=== PATIENT | male | born 1955 | race Caucasian/White ===

== ENCOUNTER → 2024-06-24 | Outpatient (CLI) | payer OTHER, SELFPAY ==
[2024-06-24 08:54] LABS: Collection Type, Urine Clean Catch; Squamous Epithelial Cell,Urine 0 /hpf (0-5)
[2024-06-24 09:34] LABS: Prostate Specific Antigen 2.26 ng/mL (0-4.00)
[2024-06-24 09:40] LABS: Alanine Aminotransferase 15 U/L (10-49); Albumin, Serum 4.7 gm/dL (3.4-4.8); Albumin/Globulin Ratio 1.6 (1.2-2.2); Alkaline Phosphatase 83 U/L (46-116); Anion Gap 11 (7-16); Aspartate Amino Transferase 30 U/L (0-34); BUN/Creatinine Ratio 15 Ratio (12-20); Bilirubin,Total 1.1 mg/dL (0.3-1.2); Blood Urea Nitrogen 18 mg/dL (9-23); Calcium 9.1 mg/dL (8.3-10.6); Calcium (Corrected) 9.1 mg/dL (8.5-10.1); Carbon Dioxide 32.7 mMol/L (20.0-31.0); Cardiac Risk Estimate 5.3 RATIO (4.0-6.7); Chloride 98 mMol/L (98-107); Cholesterol 168 mg/dL (132-200); Creatinine (Component) 1.2 mg/dL (0.6-1.3); Glucose 194 mg/dL (74-106); HDL Cholesterol 32 mg/dL (40-60); LDL Cholesterol,Calculated 62 mg/dL (0-130); Osmolality,Calculated 290 (275-295); Potassium 3.3 mMol/L (3.4-5.1); Sodium 142 mMol/L (136-145); Thyroid Stimulating Hormone 3.51 uIU/mL (0.55-4.78); Total Protein 7.7 gm/dL (5.7-8.2); Triglycerides 369 mg/dL (30-150); eGFR > 60 See Note
[2024-06-24 09:53] LABS: Glucose Estimated Average 143 mg/dL (80-131); Hemoglobin A1C 6.6 % Hgb (4.8-6.0)
[2024-06-24 09:54] LABS: Basophils # (Auto) 0.1 Thou/mm3 (0.0-0.2); Basophils % (Auto) 1 % (0-2.5); Eosinophils # (Auto) 0.3 Thou/mm3 (0.0-0.5); Eosinophils % (Auto) 4 % (0-10); Hematocrit 39.4 % (41.0-53.0); Hemoglobin 14.4 g/dL (13.5-16.0); Immature Granulocytes % (Auto) 0 % (0-0); Immature Granulocytes Auto 0.01 Thou/mm3 (0.00-0.00); Lymphocytes # (Auto) 0.8 Thou/mm3 (1.0-4.8); Lymphocytes % (Auto) 12 % (10-50); Mean Corpuscular HGB Conc 36.5 g/dl (31.0-37.0); Mean Corpuscular Hemoglobin 29.1 pg (25.0-35.0); Mean Corpuscular Volume 80 fL (80-100); Monocytes # (Auto) 0.6 Thou/mm3 (0.0-0.8); Monocytes % (Auto) 9 % (0-12); Neutrophils # (Auto) 5.2 Thou/mm3 (1.8-7.7); Neutrophils % (Auto) 75 % (37-80); Nucleated Red Blood Cell % 0 /100 WBC (0); Platelet Count 263 Thou/mm3 (140-440); RDW Standard Deviation 37.5 fL (35.1-43.9); Red Blood Count 4.94 Miln/mm3 (4.50-5.90)
[2024-06-24 11:21] LABS: Amorphous Crystals,Urine Present (Absent); Bilirubin,Urine Negative (Negative); Blood,Urine Negative (Negative); Clarity,Urine Clear (Clear/Hazy); Color,Urine Lt-Yellow (Lt Yel-Yel); Glucose, Urine Negative (Negative); Ketones,Urine Negative (Negative); Leukocyte Esterase,Urine Negative (Negative); Nitrite,Urine Negative (Negative); PH,Urine 6.5 (5.0-7.0); Protein,Urine Trace (Neg - Trace); RBC,Urine 2 /hpf (0-3); Specific Gravity,Urine 1.018 (1.001-1.035); Urobilinogen,Urine Negative mg/dL (0.0-1.0); WBC,Urine 2 /hpf (0-5)
--- NOTE | 2024-06-24 13:26 | XR_ITS ---
Examination:Right hip AP, lateral, AP pelvis 3 views Technique: Hip AP lateral, AP pelvis, 3 views Exam date and time:June 24, 2024 1342 hours INDICATIONS: Right hip pain beginning 3 weeks ago FINDINGS: No right hip fracture or dislocation Moderate bilateral hip osteoarthritis Left hip bones of the pelvis intact IMPRESSION: Moderate bilateral hip osteoarthritis.
--- NOTE | 2024-06-24 13:26 | XR_ITS ---
Examination: Lumbar spine, 5 views Technique: Lumbar spine AP, lateral, coned lateral lower lumbar spine, bilateral obliques 5 views Exam date and time: June 24, 2024 1342 hours INDICATIONS: Low back pain radiating down the right hip beginning 3 weeks ago FINDINGS: Adequate alignment lumbar vertebral bodies on the lateral view Diffuse [id number] lumbar disc narrowing most prominent at L5-S1 No spondylolisthesis Diffuse advanced facet arthropathy IMPRESSION: Mild to moderate diffuse lumbar degenerative disc disease, most prominent at L5-S1 with significant spinal stenosis Moderate bilateral hip osteoarthritis
== END | disposition home or self-care (01) ==
PROVIDERS: PCP Family Medicine; Referring Provider Family Medicine; Visit Provider Radiology Diagnostic Radiology
DX: M16.0 Bilateral primary osteoarthritis of hip (principal); M51.379 Other intervertebral disc degeneration, lumbosacral region without mention of lumbar back pain or lower extremity pain; M48.07 Spinal stenosis, lumbosacral region; Z00.00 Encounter for general adult medical examination without abnormal findings; E78.2 Mixed hyperlipidemia; I10 Essential (primary) hypertension; E03.9 Hypothyroidism, unspecified; N40.0 Benign prostatic hyperplasia without lower urinary tract symptoms; E87.6 Hypokalemia; R73.01 Impaired fasting glucose
CPT/HCPCS: 36415; 72110; 73502; 80053; 80061; 81001; 83036; 84153; 84443; 85025

== ENCOUNTER 2024-08-05 09:48 | Emergency (ER) | payer OTHER, SELFPAY ==
[2024-08-05 10:06] VITALS: BP 172/87; PULSE 70; RESP 17; TEMP 37.2; O2SAT 99; BMI 31.3
--- NOTE | 2024-08-05 10:08 | XR_ITS ---
Examination: CT abdomen with intravenous contrast CT pelvis with intravenous contrast 2-D coronal reconstructions 2-D sagittal reconstructions Date and time of exam:August 05, 2024 1151 hours INDICATIONS: Abdominal pain supraumbilical today. CTDI: vol (mGy) 12.9 DLP: (mGycm) 809 Technique: Multiple axial sections of the abdomen and pelvis have been obtained. 64 slice high-resolution scanner used. 3 mm axial sections have been obtained, post intravenous injection 60 cc [id number] 2-D sagittal, coronal reconstructions obtained. Low dose protocols were performed. One or more of the following dose reduction techniques were used; automated exposure control, adjustment of the mA and/or KV according to patient size, use of iterative reconstruction technique. Findings: No focal liver or splenic lesions No gallstones No pancreatic or adrenal mass No renal or ureteral calculi, no hydronephrosis Aorta normal size Marked inflammation around the colon diffusely, lymph nodes in the right pericecal region Also wall thickening terminal ileal segments The appendix is not enlarged 8mm fat-containing umbilical hernia Mediolateral prostate dimension 4.8 cm Mild thickening urinary bladder wall up to 4 mm Prominent osteopenia IMPRESSION: Severe colitis distal ileitis pattern, differential would include Crohn's disease, ulcerative colitis
--- NOTE | 2024-08-05 10:09 | PD.EDRME ---
Rapid Medical Screening Exam RME Arrival date/time: 08/05/24 09:48 68-year-old male presents to the emergency department today for complaints of abdominal pain abdominal distention x 1 month Chief Complaint: Abdominal Pain Vital signs: Vital Signs Temperature 98.9 F 08/05/24 10:06 Pulse Rate 70 08/05/24 10:06 Respiratory Rate 17 08/05/24 10:06 Blood Pressure 172/87 H 08/05/24 10:06 Pulse Oximetry (%) 99 08/05/24 10:06 Oxygen Delivery Method Room Air 08/05/24 10:06
[2024-08-05 10:56] LABS: Basophils # (Auto) 0.1 Thou/mm3 (0.0-0.2); Basophils % (Auto) 1 % (0-2.5); Eosinophils # (Auto) 0.3 Thou/mm3 (0.0-0.5); Eosinophils % (Auto) 2 % (0-10); Hematocrit 39.8 % (41.0-53.0); Immature Granulocytes % (Auto) 0 % (0-0); Immature Granulocytes Auto 0.05 Thou/mm3 (0.00-0.00); Lymphocytes # (Auto) 0.8 Thou/mm3 (1.0-4.8); Lymphocytes % (Auto) 7 % (10-50); Mean Corpuscular HGB Conc 35.2 g/dl (31.0-37.0); Mean Corpuscular Hemoglobin 29.1 pg (25.0-35.0); Mean Corpuscular Volume 83 fL (80-100); Monocytes # (Auto) 0.8 Thou/mm3 (0.0-0.8); Monocytes % (Auto) 7 % (0-12); Neutrophils # (Auto) 10.1 Thou/mm3 (1.8-7.7); Neutrophils % (Auto) 84 % (37-80); Nucleated Red Blood Cell % 0 /100 WBC (0); Platelet Count 258 Thou/mm3 (140-440); RDW Standard Deviation 38.6 fL (35.1-43.9); Red Blood Count 4.81 Miln/mm3 (4.50-5.90); White Blood Count 12.1 Thou/mm3 (3.8-10.6)
[2024-08-05 11:17] LABS: Alanine Aminotransferase 13 U/L (10-49); Albumin, Serum 4.6 gm/dL (3.4-4.8); Albumin/Globulin Ratio 1.7 (1.2-2.2); Alkaline Phosphatase 77 U/L (46-116); Anion Gap 9 (7-16); Aspartate Amino Transferase 28 U/L (0-34); BUN/Creatinine Ratio 15 Ratio (12-20); Bilirubin,Total 0.7 mg/dL (0.3-1.2); Blood Urea Nitrogen 16 mg/dL (9-23); Calcium 9.3 mg/dL (8.3-10.6); Calcium (Corrected) 9.3 mg/dL (8.5-10.1); Carbon Dioxide 32.8 mMol/L (20.0-31.0); Chloride 100 mMol/L (98-107); Creatinine (Component) 1.1 mg/dL (0.6-1.3); Estimated Creatinine Clearance 83.9 mL/min (>60); Globulin 2.7 gm/dL (2.3-3.5); Glucose 203 mg/dL (74-106); Lipase 45 U/L (12-53); Osmolality,Calculated 290 (275-295); Potassium 3.8 mMol/L (3.4-5.1); Sodium 142 mMol/L (136-145); Total Protein 7.3 gm/dL (5.7-8.2); eGFR > 60 See Note
--- NOTE | 2024-08-05 11:22 | PC.NURSE ---
PT IN TODAY FOR ABD PAIN THAT STARTED ABOUT A MONTH AGO. PT STATES THAT HE DOES HAVE A HERNIA THAT HE'S BEEN FOLLOWING UP WITH HIS PMD ABOUT. PT IS A/OX4 AND IS AT THE BEDSIDE.
--- NOTE | 2024-08-05 11:28 | PD.EDABDPN ---
ED Abdominal Pain RME/HPI General Chief Complaint: Abdominal Pain Stated complaint: ABD PAIN X 1 MO; HERNIA STICKING OUT; TODAY WORST Time seen by provider: 08/05/24 11:23 Arrival date/time: 08/05/24 09:48 Source: patient and family Limitations: no limitations RME / HPI RME / HPI narrative: 08/05/24 09:48 68-year-old male presents to the emergency department today for complaints of abdominal pain abdominal distention x 1 month 11:29 68-year-old male with a history of hypertension and hypothyroidism has a known ventral hernia that is chronic for several years. He states is had some increased discomfort for the past month but more bothersome in the past week. He has no vomiting or diarrhea. Has no changes in urination. Denies any problems of urination. Denies any history of prior intra-abdominal or pelvic surgeries. He has no other acute complaints. Related Data Previous Rx's ?Medication ?Instructions ?Recorded levofloxacin 750 mg tablet 750 mg PO Q24H 5 days #5 tabs 08/05/24 Allergies Allergy/AdvReac Type Severity Reaction Status Date / Time lisinopril Allergy Severe Vomiting Verified 08/05/24 09:54 Penicillins Allergy Severe Hives Verified 08/05/24 09:54 clindamycin Allergy Intermediate Hives Verified 08/05/24 09:54 Review of Systems Review of Systems Systems Reviewed: All systems reviewed, normal except as documented ED Exam General Limitations: Present no limitations General appearance: Present alert and in no apparent distress Head Head exam: Present atraumatic Eye Eye exam: Present normal appearance, PERRL and EOMI ENT ENT exam: Present normal exam, normal oropharynx and mucous membranes moist Neck Neck exam: Present normal inspection, full ROM and trachea midline Chest Chest inspection: Present normal inspection and symmetric chest wall rise Respiratory Respiratory exam: Present normal lung sounds bilaterally Cardiovascular Cardiovascular exam: Present regular rate, normal rhythm and normal heart sounds Abdominal Exam Abdominal exam: Present soft and normal bowel sounds Extremities Exam Extremities exam: Present normal inspection and full ROM Back Exam Back exam: Present normal inspection and full ROM Neurological Exam Neurological exam: Present alert, oriented X3 and CN II-XII intact Psychiatric Psychiatric exam: Present normal affect and normal mood Skin Skin exam: Present warm, dry, intact and normal color Course Quality Measures none Orders Category Date Time Status CT Screening NOW Care 08/05/24 10:09 Active Insert IV NOW Care 08/05/24 10:[address] abdomen pelvis w con Stat Exams 08/05/24 10:08 Completed CBC Stat Lab 08/05/24 10:31 Completed Comprehensive Metabolic Panel Stat Lab 08/05/24 10:31 Completed Lactic Acid [Lactate (Lactic Acid)] Stat Lab 08/05/24 11:45 Completed Lipase Stat Lab 08/05/24 10:31 Completed UA, C/S IF [Urinalysis, C/S if Indicated] Stat Lab 08/05/24 12:57 Received Levofloxacin [Levaquin] Med 08/05/24 13:05 Once 750 mg PO X1 ONE Vital Signs Vital signs: Vital Signs Temperature 98.9 F 08/05/24 10:06 Pulse Rate 70 08/05/24 10:06 Respiratory Rate 17 08/05/24 10:06 Blood Pressure 172/87 H 08/05/24 10:06 Pulse Oximetry (%) 99 08/05/24 10:06 Oxygen Delivery Method Room Air 08/05/24 10:06 Abdominal Pain MDM MDM Narrative MDM Narrative:: 68-year-old male with a history of hypertension and hypothyroidism has a known ventral hernia that is chronic for several years. He states is had some increased discomfort for the past month but more bothersome in the past week. He has no vomiting or diarrhea. Has no changes in urination. Denies any problems of urination. Denies any history of prior intra-abdominal or pelvic surgeries. He has no other acute complaints. On exam patient is nontoxic-appearing and no visible signs distress. No abdominal masses were appreciated on exam. CT reveals a nonincarcerated fat-containing hernia as well as a colitis pattern. Patient given a dose of Levaquin here. We discussed his CT findings and need to follow-up as an outpatient. I do believe the patient be discharged from the emergency room for outpatient follow-up. He will be referred to general surgery for consultation. We will refer him to GI for outpatient consultation. Return precautions were discussed. Discussed how to reduce hernia at home. He will return here as needed for any worsening changes as needed. Patient data External records reviewed:: None Clinical information provided by:: patient and family Social determinants that could affect healthcare access:: none Patient has the following chronic illnesses:: n/a How is presenting disease/condition affected by chronic disease/condition?: no chronic disease Evaluation data The following diagnostics were reviewed and interpreted by me:: lab results and radiology exam(s) (Nonincarcerated fat-containing hernia with colitis pattern.) Lab and/or radiology exams considered but not ordered:: n/a Interpretation Summary: No leukocytosis or metabolic derangement. Lactic acid is unremarkable. Medications / Prescriptions Medications or Prescriptions considered but not ordered:: n/a Medication administrations:: n/a Consultations Consultation(s) initiated? (list below): No Diagnosis Differential diagnosis abdominal pain: abdominal pain, calculus of kidney, constipation, diverticulitis, gastroenteritis, small bowel obstruction and other Most likely diagnosis given after review of the tests above:: Abdominal pain Admission Indicated Admission indicated?: not indicated Admission Request Was there a request for admission?: No Disposition Plan Disposition Plan: Discharge Discharge Attestation Discharge Attestation: The patient and all family members were given an opportunity to ask questions and understood the discharge instructions. Discharge instructions specifically effects, indications for sooner follow up or return to the emergency department, and the expected course of current diagnosis. Patient condition: Stable Discharge Plan Plan Patient Disposition: HOME (Self Care) Patient condition on transfer: Stable Prescriptions/Referrals Prescriptions/Med Rec: New levofloxacin 750 mg tablet 750 mg PO Q24H 5 Days Qty: 5 0RF Referrals: Levi Carrion MD [Primary Care Provider] - In 1 week Elias Mallory MD [Physician] - In 1 week Jessica Alvarado MD [Physician] - In 1 week Problem List Clinical Impression: Hernia, Colitis Patient/Caregiver Discharge Instructions Education Materials: Understanding Colitis, ED Hernia (Adult) Additional Instructions: Use the provided medication as prescribed. Contact surgery and GI to schedule follow-up appointments for consultation. Please return to the emergency room anytime for any worsening or emergent changes. Print Language: Croatian Stand Alone Forms: [employer] Award Info., Patient Portal Info Letter
[2024-08-05 13:03] LABS: Collection Type, Urine Clean Catch; Squamous Epithelial Cell,Urine 0 /hpf (0-5)
[2024-08-05 13:07] LABS: Bilirubin,Urine Negative (Negative); Blood,Urine Negative (Negative); Clarity,Urine Clear (Clear/Hazy); Color,Urine Lt-Yellow (Lt Yel-Yel); Culture Indicated,Urine Not Indicated; Glucose, Urine Negative (Negative); Ketones,Urine Negative (Negative); Leukocyte Esterase,Urine Negative (Negative); Nitrite,Urine Negative (Negative); Protein,Urine Trace (Neg - Trace); RBC,Urine 2 /hpf (0-3); Specific Gravity,Urine 1.025 (1.001-1.035); Urobilinogen,Urine Negative mg/dL (0.0-1.0); WBC,Urine 2 /hpf (0-5)
[2024-08-05] MEDS: LEVOFLOXACIN 250 MG TABLET 750 MG PO (13:23)
[2024-08-05 13:50] VITALS: BP 150/76; PULSE 65; O2SAT 98
== END 2024-08-05 13:51 | disposition home or self-care (01) ==
PROVIDERS: Nurse Practitioner Primary Care; Physician Assistant Medical; Emergency Provider Family Medicine; PCP Family Medicine
DX: K52.9 Noninfective gastroenteritis and colitis, unspecified (principal); K42.9 Umbilical hernia without obstruction or gangrene
CPT/HCPCS: 36415; 74177; 80053; 81001; 83605; 83690; 85025; 99285; A4649; Q9967; A9270

== ENCOUNTER → 2024-09-03 | Outpatient (CLI) | payer OTHER, SELFPAY ==
[2024-09-03 10:17] LABS: Glucose Estimated Average 160 mg/dL (80-131); Hemoglobin A1C 7.2 % Hgb (4.8-6.0)
[2024-09-03 10:40] LABS: Alanine Aminotransferase 16 U/L (10-49); Albumin, Serum 4.6 gm/dL (3.4-4.8); Albumin/Globulin Ratio 1.6 (1.2-2.2); Alkaline Phosphatase 84 U/L (46-116); Anion Gap 13 (7-16); Aspartate Amino Transferase 33 U/L (0-34); BUN/Creatinine Ratio 12 Ratio (12-20); Bilirubin,Total 0.7 mg/dL (0.3-1.2); Blood Urea Nitrogen 12 mg/dL (9-23); Calcium 9.3 mg/dL (8.3-10.6); Calcium (Corrected) 9.3 mg/dL (8.5-10.1); Carbon Dioxide 31.7 mMol/L (20.0-31.0); Cardiac Risk Estimate 5.6 RATIO (4.0-6.7); Chloride 98 mMol/L (98-107); Cholesterol 168 mg/dL (132-200); Creatinine (Component) 1.0 mg/dL (0.6-1.3); Globulin 2.9 gm/dL (2.3-3.5); Glucose 184 mg/dL (74-106); HDL Cholesterol 30 mg/dL (40-60); Osmolality,Calculated 289 (275-295); Sodium 143 mMol/L (136-145); Thyroid Stimulating Hormone 2.48 uIU/mL (0.55-4.78); Total Protein 7.5 gm/dL (5.7-8.2); Triglycerides 431 mg/dL (30-150); eGFR > 60 See Note
[2024-09-03 10:41] LABS: Potassium 2.6 mMol/L (3.4-5.1)
== END | disposition home or self-care (01) ==
LOC: COPL 08:22
PROVIDERS: PCP Family Medicine; Referring Provider Family Medicine; Visit Provider Family Medicine
DX: E11.9 Type 2 diabetes mellitus without complications (principal); E78.2 Mixed hyperlipidemia; I10 Essential (primary) hypertension; E03.9 Hypothyroidism, unspecified
CPT/HCPCS: 36415; 80053; 80061; 83036; 84443

== ENCOUNTER → 2024-09-23 | Outpatient (CLI) | payer OTHER, SELFPAY ==
[2024-09-23 13:38] LABS: Potassium 3.0 mMol/L (3.4-5.1)
== END | disposition home or self-care (01) ==
LOC: COPL 12:34
PROVIDERS: PCP Family Medicine; Referring Provider Family Medicine; Visit Provider Family Medicine
DX: E87.6 Hypokalemia (principal)
CPT/HCPCS: 36415; 84132

== ENCOUNTER 2024-11-05 08:36 | Emergency (ER) | payer OTHER, SELFPAY ==
[2024-11-05 08:50] VITALS: BP 177/89; PULSE 77; RESP 18; TEMP 36.5; O2SAT 97; BMI 30.3
--- NOTE | 2024-11-05 08:51 | XR_ITS ---
Examination: CT abdomen and pelvis without contrast. Coronal 3-D reconstructions. Sagittal 2-D reconstructions. Date and time of exam:November 05, 2024 1147 hours COMPARISON: August 05, 2024 INDICATIONS: Left-sided flank pain with nausea beginning 6 days ago CTDI: vol (mGy): 10.5 DLP: (mGycm): 713 Technique: Axial images of the abdomen have been obtained, 3 mm slice thickness Intravenous contrast material has not been administered. Low dose protocols were performed. One or more of the following dose reduction techniques were used; automated exposure control, adjustment of the mA and/or KV according to patient size, use of iterative reconstruction technique. Findings: No focal liver or splenic lesions No gallstones No pancreatic or adrenal mass. Mild to moderate renal scar formation 21 mm left renal cyst No renal or ureteral calculi, no hydronephrosis No abdominal aortic aneurysmal dilatation There is wall thickening and mild inflammatory change involving terminal ileal segment Normal appendix No bowel obstruction Urinary bladder intact Transverse prostate dimension 4.5 cm Prominent osteopenia IMPRESSION: No renal or ureteral calculi, no hydronephrosis Wall thickening and inflammatory change involving the terminal ileal segments suspicious for enteritis such as Crohn's disease Normal appendix
--- NOTE | 2024-11-05 08:51 | PD.EDABDPN ---
ED Abdominal Pain RME/HPI General Chief Complaint: General Adult/Misc Complain Stated complaint: L) KIDNEY PAIN X 6 DAYS Time seen by provider: 11/05/24 08:48 Arrival date/time: 11/05/24 08:36 69-year-old male with no known medical history presents to the emergency room with a chief complaint of left-sided flank pain x 6 days Source: patient Mode of arrival: ambulatory Limitations: no limitations Related Data Allergies Allergy/AdvReac Type Severity Reaction Status Date / Time lisinopril Allergy Severe Vomiting Verified 11/05/24 08:40 Penicillins Allergy Severe Hives Verified 11/05/24 08:40 clindamycin Allergy Intermediate Hives Verified 11/05/24 08:40 Review of Systems Review of Systems Systems Reviewed: All systems reviewed, normal except as documented Constitutional Constitutional: Reports system reviewed and no additional complaints, except as documented, Denies fatigue, Denies fever(s), Denies headache(s) and Denies weakness Eyes Eyes: Reports system reviewed and no additional complaints, except as documented, Denies blurry vision and Denies change in vision ENT Ears, Nose, Mouth, and Throat: Reports system reviewed and no additional complaints, except as documented, Denies otalgia, Denies headache(s), Denies nasal congestion, Denies throat swelling and Denies vertigo Cardiovascular Cardiovascular: Reports system reviewed and no additional complaints, except as documented, Denies chest pain, Denies dyspnea and Denies dyspnea on exertion Respiratory Respiratory: Reports system reviewed and no additional complaints, except as documented, Denies chest congestion, Denies cough, Denies dyspnea, Denies dyspnea on exertion and Denies wheezing Gastrointestinal Gastrointestinal: Reports system reviewed and no additional complaints, except as documented, Denies abdominal pain, Denies cramping, Denies nausea and Denies vomiting Genitourinary Genitourinary: Reports system reviewed and no additional complaints, except as documented, Denies dysuria and Denies hematuria Musculoskeletal Musculoskeletal: Reports system reviewed and no additional complaints, except as documented and Reports back pain Integumentary/Breasts Skin/Breast: Reports system reviewed and no additional complaints, except as documented and Denies wounds Neurologic Neurologic: Reports system reviewed and no additional complaints, except as documented, Denies confusion, Denies headache(s), Denies lack of coordination, Denies vertigo and Denies weakness Psychiatric Psychiatric: Reports system reviewed and no additional complaints, except as documented, Denies anxiety, Denies confusion, Denies depression, Denies paranoia, Denies suicidal ideation and Denies tactile hallucinations Endocrine Endocrine: Reports system reviewed and no additional complaints, except as documented and Denies fatigue Hematologic/Lymphatic Hematologic/Lymphatic: Reports system reviewed and no additional complaints, except as documented and Denies lymphadenopathy Allergic/Immunologic Allergic/Immunologic: Reports system reviewed and no additional complaints, except as documented, Denies throat swelling, Denies urticaria and Denies wheezing Past Medical History Past Medical History CARDIAC: Positive Hypertension; Negative Cardiac Disorders or Congestive Heart Failure RESPIRATORY: Negative Chronic Obstructive Pulmonary Disease (COPD) or Asthma GASTROINTESTINAL: Positive Hiatal Hernia GENITOURINARY: Negative Renal Disease ENDOCRINE: Positive Diabetes Mellitus Type 2; Negative Diabetes Mellitus Type 1 HEMATOLOGIC: Negative Sickle Cell Disease Surgical History SURGICAL: Positive Nose Surgery Social History SMOKING STATUS: Former smoker ED Exam General Limitations: Present no limitations General appearance: Present alert and in no apparent distress Head Head exam: Present atraumatic Eye Eye exam: Present normal appearance, PERRL and EOMI ENT ENT exam: Present normal exam, normal oropharynx and mucous membranes moist Neck Neck exam: Present normal inspection, full ROM and trachea midline Chest Chest inspection: Present normal inspection and symmetric chest wall rise Respiratory Respiratory exam: Present normal lung sounds bilaterally Cardiovascular Cardiovascular exam: Present regular rate, normal rhythm and normal heart sounds Abdominal Exam Abdominal exam: Present soft and normal bowel sounds Extremities Exam Extremities exam: Present normal inspection and full ROM Back Exam Back exam: Present normal inspection, full ROM and CVA tenderness (L) Neurological Exam Neurological exam: Present alert, oriented X3 and CN II-XII intact Psychiatric Psychiatric exam: Present normal affect and normal mood Skin Skin exam: Present warm, dry, intact and normal color Course Quality Measures none Orders Category Date Time Status CT abdomen pelvis wo con Stat Exams 11/05/24 08:51 Completed CBC Stat Lab 11/05/24 09:21 Completed CMP [Comprehensive Metabolic Panel] Stat Lab 11/05/24 09:21 Completed UA [Urinalysis] Stat Lab 11/05/24 10:00 Completed Urine Culture Stat Lab 11/05/24 10:00 Received Ketorolac Inj [Toradol Inj] Med 11/05/24 08:51 Discontinued 30 mg IM X1 ONE Vital Signs Vital signs: Vital Signs Temperature 97.7 F 11/05/24 08:50 Pulse Rate 77 11/05/24 08:50 Respiratory Rate 18 11/05/24 08:50 Blood Pressure 177/89 H 11/05/24 08:50 Pulse Oximetry (%) 97 11/05/24 08:50 Oxygen Delivery Method Room Air 11/05/24 08:50 Abdominal Pain MDM MDM Narrative MDM Narrative:: 69-year-old male with no known medical history presents to the emergency room with a chief complaint of left-sided flank pain x 6 days Patient is hemodynamically stable and in no apparent distress Physical examination shows left CVA tenderness with palpation. Patient is afebrile not tachycardic not tachypneic CBC CMP were negative for any leukocytosis. There is no acute kidney injury. Urinalysis is within normal limits. CT of the abdomen and pelvis was negative for any acute findings. There is 0 ureteral calculi or any hydronephrosis or pyelonephritis. There is a 21 mm cyst in the left kidney. Patient was educated to follow-up with your primary care provider Patient was discharged and educated to follow-up with primary care provider in the next 24 to 48 hours and return to the emergency room for any evidence of worsening signs or symptoms Patient data External records reviewed:: [facility] previous records Clinical information provided by:: patient Social determinants that could affect healthcare access:: none Patient has the following chronic illnesses:: No chronic illness How is presenting disease/condition affected by chronic disease/condition?: no chronic disease Evaluation data The following diagnostics were reviewed and interpreted by me:: lab results and radiology exam(s) Lab and/or radiology exams considered but not ordered:: Labs and radiology exams considered and ordered Interpretation Summary: CT abdomen and pelvis-Findings: No focal liver or splenic lesions No gallstones No pancreatic or adrenal mass. Mild to moderate renal scar formation 21 mm left renal cyst No renal or ureteral calculi, no hydronephrosis No abdominal aortic aneurysmal dilatation There is wall thickening and mild inflammatory change involving terminal ileal segment Normal appendix No bowel obstruction Urinary bladder intact Transverse prostate dimension 4.5 cm Prominent osteopenia IMPRESSION: No renal or ureteral calculi, no hydronephrosis Wall thickening and inflammatory change involving the terminal ileal segments suspicious for enteritis such as Crohn's disease Normal appendix Medications / Prescriptions Medications or Prescriptions considered but not ordered:: Medication Medication administrations:: Medication Administration History Discontinued Medications Ketorolac Tromethamine (Ketorolac Inj 60 Mg/2 Ml Vial) 30 mg IM X1 ONE Stop: 11/05/24 08:52 Last Admin: 11/05/24 09:01 Dose: 30 mg Documented By: DB Medication given Consultations Consultation(s) initiated? (list below): No Diagnosis Differential diagnosis abdominal pain: calculus of kidney, constipation, gastroenteritis and other (Renal cyst) Most likely diagnosis given after review of the tests above:: Renal cyst Admission Indicated Admission indicated?: not indicated Admission Request Was there a request for admission?: No Disposition Plan Disposition Plan: Discharge Discharge Attestation Discharge Attestation: The patient and all family members were given an opportunity to ask questions and understood the discharge instructions. Discharge instructions specifically effects, indications for sooner follow up or return to the emergency department, and the expected course of current diagnosis. Patient condition: Stable Discharge Plan Plan Patient Disposition: HOME (Self Care) Discharge Disposition comment: Stable Prescriptions/Referrals Referrals: Levi Carrion MD [Primary Care Provider, [facility]] - In 1 week Problem List Clinical Impression: Acute left flank pain, Renal cyst Patient/Caregiver Discharge Instructions Education Materials: Simple Kidney Cysts, ED Flank Pain, Uncertain Cause Additional Instructions: Please follow-up with your primary care provider in the next [address] of your abdomen and pelvis was negative for any acute kidney stones. Your urinalysis was negative for any urinary tract infection. Blood work was within normal limits. Your CT of your abdomen and pelvis did find a 21 mm left-sided renal cyst. Please follow-up with your primary care provider for further management as this can be the cause of your left-sided flank pain For any evidence of worsening signs or symptoms return to the emergency room immediately Print Language: Surinamese Stand Alone Forms: [employer] Award Info., Patient Portal Info Letter PA/PRODUCTION CONTROL ANALYST Supervising Physician LORI/TELLY Supervising Physician: Dr. Lin
[2024-11-05] MEDS: KETOROLAC INJ 60 MG/2 ML VIAL 30 MG IM (09:01)
[2024-11-05 09:35] LABS: Basophils # (Auto) 0.1 Thou/mm3 (0.0-0.2); Basophils % (Auto) 1 % (0-2.5); Eosinophils # (Auto) 0.3 Thou/mm3 (0.0-0.5); Eosinophils % (Auto) 2 % (0-10); Hematocrit 40.1 % (41.0-53.0); Hemoglobin 14.3 g/dL (13.5-16.0); Immature Granulocytes Auto 0.04 Thou/mm3 (0.00-0.00); Lymphocytes # (Auto) 1.1 Thou/mm3 (1.0-4.8); Lymphocytes % (Auto) 10 % (10-50); Mean Corpuscular HGB Conc 35.7 g/dl (31.0-37.0); Mean Corpuscular Hemoglobin 29.2 pg (25.0-35.0); Mean Corpuscular Volume 82 fL (80-100); Monocytes # (Auto) 0.9 Thou/mm3 (0.0-0.8); Monocytes % (Auto) 8 % (0-12); Neutrophils # (Auto) 8.6 Thou/mm3 (1.8-7.7); Neutrophils % (Auto) 79 % (37-80); Nucleated Red Blood Cell # 0.00 Thou/mm3 (0.00-0.00); Nucleated Red Blood Cell % 0 /100 WBC (0); Platelet Count 273 Thou/mm3 (140-440); RDW Standard Deviation 38.5 fL (35.1-43.9); Red Blood Count 4.89 Miln/mm3 (4.50-5.90); White Blood Count 10.9 Thou/mm3 (3.8-10.6)
[2024-11-05 09:52] LABS: Alanine Aminotransferase 23 U/L (10-49); Albumin, Serum 4.8 gm/dL (3.4-4.8); Albumin/Globulin Ratio 1.8 (1.2-2.2); Alkaline Phosphatase 90 U/L (46-116); Anion Gap 10 (7-16); Aspartate Amino Transferase 36 U/L (0-34); BUN/Creatinine Ratio 12 Ratio (12-20); Bilirubin,Total 0.8 mg/dL (0.3-1.2); Blood Urea Nitrogen 17 mg/dL (9-23); Calcium 9.8 mg/dL (8.3-10.6); Calcium (Corrected) 9.8 mg/dL (8.5-10.1); Carbon Dioxide 33.6 mMol/L (20.0-31.0); Chloride 95 mMol/L (98-107); Creatinine (Component) 1.4 mg/dL (0.6-1.3); Estimated Creatinine Clearance 64.1 mL/min (>60); Globulin 2.7 gm/dL (2.3-3.5); Glucose 297 mg/dL (74-106); Osmolality,Calculated 290 (275-295); Potassium 2.9 mMol/L (3.4-5.1); Sodium 139 mMol/L (136-145); Total Protein 7.5 gm/dL (5.7-8.2); eGFR 55 See Note
[2024-11-05 10:08] LABS: Collection Type, Urine Clean Catch; Squamous Epithelial Cell,Urine 0 /hpf (0-5)
[2024-11-05 10:15] LABS: Bilirubin,Urine Negative (Negative); Blood,Urine Negative (Negative); Clarity,Urine Clear (Clear/Hazy); Color,Urine Yellow (Lt Yel-Yel); Glucose, Urine 3+ (Negative); Ketones,Urine Negative (Negative); Leukocyte Esterase,Urine Negative (Negative); Nitrite,Urine Negative (Negative); PH,Urine 6.5 (5.0-7.0); Protein,Urine 2+ (Neg - Trace); RBC,Urine 4 /hpf (0-3); Specific Gravity,Urine 1.021 (1.001-1.035); Urobilinogen,Urine Negative mg/dL (0.0-1.0); WBC,Urine 2 /hpf (0-5)
== END 2024-11-05 13:31 | disposition home or self-care (01) ==
PROVIDERS: Nurse Practitioner Family; Emergency Provider Emergency Medicine; PCP Family Medicine
DX: N28.1 Cyst of kidney, acquired (principal)
CPT/HCPCS: 36415; 74176; 80053; 81001; 85025; 87086; 96372; 99284; J1885

== ENCOUNTER → 2024-11-26 | Outpatient (CLI) | payer OTHER, SELFPAY ==
[2024-11-26 08:36] LABS: Basophils # (Auto) 0.1 Thou/mm3 (0.0-0.2); Basophils % (Auto) 1 % (0-2.5); Eosinophils # (Auto) 0.3 Thou/mm3 (0.0-0.5); Eosinophils % (Auto) 4 % (0-10); Hematocrit 39.5 % (41.0-53.0); Hemoglobin 14.1 g/dL (13.5-16.0); Immature Granulocytes Auto 0.02 Thou/mm3 (0.00-0.00); Lymphocytes # (Auto) 0.9 Thou/mm3 (1.0-4.8); Lymphocytes % (Auto) 12 % (10-50); Mean Corpuscular HGB Conc 35.7 g/dl (31.0-37.0); Mean Corpuscular Hemoglobin 29.2 pg (25.0-35.0); Mean Corpuscular Volume 82 fL (80-100); Monocytes # (Auto) 0.7 Thou/mm3 (0.0-0.8); Monocytes % (Auto) 9 % (0-12); Neutrophils # (Auto) 5.4 Thou/mm3 (1.8-7.7); Neutrophils % (Auto) 74 % (37-80); Nucleated Red Blood Cell # 0.00 Thou/mm3 (0.00-0.00); Nucleated Red Blood Cell % 0 /100 WBC (0); Platelet Count 265 Thou/mm3 (140-440); RDW Standard Deviation 38.2 fL (35.1-43.9); Red Blood Count 4.83 Miln/mm3 (4.50-5.90); White Blood Count 7.4 Thou/mm3 (3.8-10.6)
[2024-11-26 09:13] LABS: Alanine Aminotransferase 31 U/L (10-49); Albumin, Serum 4.8 gm/dL (3.4-4.8); Albumin/Globulin Ratio 1.6 (1.2-2.2); Alkaline Phosphatase 81 U/L (46-116); Anion Gap 12 (7-16); Aspartate Amino Transferase 47 U/L (0-34); BUN/Creatinine Ratio 10 Ratio (12-20); Bilirubin,Total 0.9 mg/dL (0.3-1.2); Blood Urea Nitrogen 12 mg/dL (9-23); Calcium 9.2 mg/dL (8.3-10.6); Calcium (Corrected) 9.2 mg/dL (8.5-10.1); Carbon Dioxide 35.1 mMol/L (20.0-31.0); Cardiac Risk Estimate 5.4 RATIO (4.0-6.7); Chloride 94 mMol/L (98-107); Cholesterol 182 mg/dL (132-200); Creatinine (Component) 1.2 mg/dL (0.6-1.3); Globulin 3.0 gm/dL (2.3-3.5); Glucose 244 mg/dL (74-106); HDL Cholesterol 34 mg/dL (40-60); Osmolality,Calculated 288 (275-295); Sodium 141 mMol/L (136-145); Thyroid Stimulating Hormone 4.06 uIU/mL (0.55-4.78); Total Protein 7.8 gm/dL (5.7-8.2); Triglycerides 455 mg/dL (30-150); eGFR > 60 See Note
[2024-11-26 09:35] LABS: Potassium 2.5 mMol/L (3.4-5.1)
[2024-11-26 11:28] LABS: Prostate Specific Antigen 1.75 ng/mL (0-4.00)
== END | disposition home or self-care (01) ==
LOC: COPL 07:52
PROVIDERS: PCP Family Medicine; Referring Provider Family Medicine; Visit Provider Family Medicine
DX: K52.9 Noninfective gastroenteritis and colitis, unspecified (principal); N28.1 Cyst of kidney, acquired; E78.2 Mixed hyperlipidemia; I10 Essential (primary) hypertension; N40.0 Benign prostatic hyperplasia without lower urinary tract symptoms; E03.9 Hypothyroidism, unspecified
CPT/HCPCS: 36415; 80053; 80061; 84153; 84443; 85025

== ENCOUNTER → 2025-02-12 | Outpatient (CLI) | payer OTHER, SELFPAY ==
--- NOTE | 2025-02-12 10:00 | XR_ITS ---
Examination: Retroperitoneal ultrasound, complete Technique: Multiple high resolution grayscale images of the retroperitoneum obtained, including kidneys and bladder. Exam date and time: February 12, 2025, 0949 hours INDICATIONS: Episodes of left flank pain beginning 1 month ago FINDINGS: Right kidney 13.7 cm renal cortex 1.3 cm Left kidney 12.3 cm in the cortex 1.4 cm Lower pole left renal cyst 31 mm Mild renal scarring No bladder mass or bladder calculi Bladder prevoid volume 221 cc unable to void Prostate volume 34 cc no prostate nodules IMPRESSION: Bilateral renal cortical thinning Mild bilateral renal scar formation No hydronephrosis
== END | disposition home or self-care (01) ==
PROVIDERS: PCP Family Medicine; Referring Provider Family Medicine; Visit Provider Family Medicine
DX: N28.89 Other specified disorders of kidney and ureter (principal)
CPT/HCPCS: 76770